=== PATIENT | female | born 1990 | race African-American/Black ===

== ENCOUNTER 2017-08-04 04:25 | Emergency (ER) | payer BC ==
[2017-08-04] MEDS ORDERED: Ketorolac Tromethamine 60 MG/2 ML VIAL ONE (04:55)
[2017-08-04] MEDS ORDERED: Dexamethasone 4 MG TAB ONE (04:55)
[2017-08-04] MEDS ORDERED: Dexamethasone 10 MG/ML VIAL ONE (04:56)
== END 2017-08-04 05:26 | disposition home or self-care (01) ==
LOC: ERS 04:25
DX: J40 Bronchitis, not specified as acute or chronic (principal); I10 Essential (primary) hypertension; F41.9 Anxiety disorder, unspecified; F17.210 Nicotine dependence, cigarettes, uncomplicated
CPT/HCPCS: 96372; 99406; J1100; J1885; J8540

== ENCOUNTER 2017-09-04 04:25 | Emergency (ER) | payer SELFPAY ==
[2017-09-04 05:04] LABS: INR-International Normal Ratio 1.1; PTT 29.7 SEC (22.9-36.1)
[2017-09-04 05:16] LABS: #Eosinphils 0.1 thou/uL (0.0-0.7); #Lymphocytes 2.6 thou/uL (1.20-3.40); #Monocytes 0.6 thou/uL (0.11-0.59); #Neutrophils 3.8 thou/uL (1.40-6.50); %Basophils 0.5 % (0.0-1.0); %Eosinophils 1.4 % (0.0-10.0); %Lymphocytes 36.3 % (21.0-51.0); %Neutrophils 53.8 % (42.0-75.0); Hemoglobin 7.2 g/dL (12.0-16.0); Hypochromia SLIGHT = 6-15 cells (100X) (0-5/hpf); MDiff Complete? YES; Mean Corpuscular HGB CONC 29.8 g/dL (32.0-36.0); Mean Corpuscular Hemoglobin 21.6 pg (27.0-31.0); Mean Corpuscular Volume 72.4 fl (81.0-99.0); Mean Platelet Volume 9.1 fL (7.4-10.4); Microcytosis MODERATE=15-30 cells (100X) (0-5/hpf); Platelet Count 381 thou/uL (130-400); RBC Distribution Width 18.6 % (11.5-14.5); Red Blood Cell (RBC) Count 3.32 mill/uL (4.20-5.40); Target Cells SLIGHT = 2-5 cells (100X) (0-1/hpf); Tear Drops SLIGHT = 2-5 cells (100X) (0-1/hpf); White Blood Cell (WBC) Count 7.1 thou/uL (4.8-10.8)
[2017-09-04 06:03] LABS: BHCG - Serum Negative (NEGATIVE); Pregs Control Background? CLEAR/WHITE (CLR/WHITE); Pregs Control Bar Appear? YES (CONTROL BAR)
[2017-09-04 06:05] LABS: Bilirubin Negative (Negative); Blood, Urine Large (Negative); Clarity CLOUDY (Clear); Glucose, Urine (Dipstick) Negative (Negative); Leukocyte Small (Negative); Nitrite Negative (Negative); Protein, Urine (Dipstick) 100 mg/dL (Neg-Trace); Specific Gravity, Urine 1.012 (1.002-1.036); Urobilinogen 0.2 mg/dL (0.2-1.0)
[2017-09-04 06:08] LABS: Bacteria/HPF None Seen HPF (None Seen); Hyaline Casts/LPF 0-3 HYALINE CAST LPF (0-3 Hyaline); Pregnancy Test - Urine (BHCG) Negative (Negative); Pregu Control Bar Appear? YES (CONTROL BAR); RBC/HPF GREATER THAN 50-TNTC HPF (0-3); Specific Gravity 1.012 (1.002-1.036); Squamous Epithelial 0-3 HPF (0-3)
[2017-09-04 06:09] LABS: Pregu Control Background? CLEAR/WHITE (CLR/WHITE)
--- NOTE | 2017-09-04 08:12 | ULT ---
PRELIMINARY REPORT/[facility]/EMERGENCY AFTER HOURS PROCEDURE: EXAM: US Pelvis Complete CLINICAL HISTORY: 27 years old, female; Signs and symptoms; Menstruation abnormalities; Excessive menstruation; With ir regular cycle; Patient HX: Vaginal bleeding with clots for 2 months TECHNIQUE: Real-time pelvic ultrasound (complete) with image documentation. COMPARISON: No relevant prior studies available. FINDINGS: The uterus measures 9.4 cm in length. There are 2 hypoechoic areas in the myometrium, adjacent to the endometrial region. These are suspici ous for possible submucosal fibroids. These measure 22 x 14 x 15 mm, and 12 x 6 x 10 mm. There is no intrauterine fluid. Endometrial thickness measures up to 10-11 mm, and is somewhat inhomogeneous. There is no free pelvic fluid. The right ovary appears unremarkable. The left ovary appears unremarkable. Blood flow detected in each ovary. The urinary bladder was not completely evaluated/imaged at this time. IMPRESSION: Possible uterine fibroids, see above details. Otherwise, essentially unremarkable sonographic appearance of the uterus and ovaries. Other details discussed above. EXAM: US Pelvis, Transvaginal CLINICAL HISTORY: 27 years old, female; Signs and symptoms; Menstruation abnormalities; Excessive menstruation; With ir regular cycle; Patient HX: Vaginal bleeding with clots for 2 months TECHNIQUE: Real-time transvaginal pelvic ultrasound (complete) with image documentation. Transvaginal imaging wa s used for better evaluation of the endometrium and adnexa. COMPARISON: No relevant prior studies available. FINDINGS: The uterus measures 9.4 cm in length. There are 2 hypoechoic areas in the myometrium, adjacent to the endometrial region. These are suspici ous for possible submucosal fibroids. These measure 22 x 14 x 15 mm, and 12 x 6 x 10 mm. There is no intrauterine fluid. Endometrial thickness measures up to 10-11 mm, and is somewhat inhomogeneous. There is no free pelvic fluid. The right ovary appears unremarkable. The left ovary appears unremarkable. Blood flow detected in each ovary. The urinary bladder was not completely evaluated/imaged at this time. Endovaginal scanning provided better visualization/evaluation of the endometrium, myometrial, and ova leticia/adnexal regions as discussed above. IMPRESSION: Possible uterine fibroids, see above details. Otherwise, essentially unremarkable sonographic appearance of the uterus and ovaries. Other details discussed above. Thank you for allowing us to participate in the care of your patient. Dictated and Authenticated by: Preston Melo MD 09/04/2017 7:25 AM Central Time ([place] & [place]) FINAL REPORT TRANSABDOMINAL AND TRANSVAGINAL PELVIC AND VASCULAR DUPLEX INCLUDING COLOR SPECTRAL DOPPLER IMAGING O F THE PELVIS: Emergency after-hours examination at 5:57 a.m. on 09/04/2017. Two small hypoechoic foci within the uterus, the largest measuring approximately 1.4 x 1.5 x 2.2 cm, evidence for small submucosal fibroids. Endometrial thickness at 1.1 cm with a somewhat heterogeneou s appearance. Right and left ovaries are unremarkable. Vascular flow is documented in both ovaries. No evidence for ovarian torsion. Code QA/Agree with [facility]. POS: [facility]
[2017-09-04] MEDS ORDERED: Ondansetron HCl/PF 4 MG/2 ML Vial ONE (08:49)
[2017-09-04] MEDS ORDERED: Megestrol Acetate 40 MG TAB PO SCH (09:00)
--- NOTE | 2017-09-04 22:10 | CON ---
DATE OF CONSULTATION: 09/04/2017 CHIEF COMPLAINT: Menorrhagia and anemia. HISTORY OF PRESENT ILLNESS: At the time of presentation, Ms. Collins is a 27-year-old nulliparous f emale with a history of irregular menses who has been bleeding since the end of June. The patient presented to the emergency department with complaints of lightheadedness and dizziness in the wee ho urs of the morning. She states that for the first 2-3 weeks of bleeding, it was about the amount of a normal period but thereafter, it has been heavy with passage of grape sized clots. The patient has not been on control within the last year, states that is has been approximately 10 years and s he was not on any control. She denies any fever or chills. She denies any cardiovascular, res piratory or GI complaints. She does report a mild headache, but denies any further lightheadedness o r dizziness. The patient has not been sexually active for the past several months. She denies any h istory of abnormal Pap smears. She was last seen by a iron melter 4 years ago. PAST MEDICAL HISTORY: Hypertension, anemia. PAST SURGICAL HISTORY: Negative. MEDICATIONS: The patient was prescribed lisinopril which she self-discontinued approximately 1 month ago secondary to lightheadedness and vomiting. ALLERGIES: No known drug allergies. SOCIAL HISTORY: The patient admits to tobacco use and occasional alcohol use, but denies any illicit drug use. PHYSICAL EXAMINATION: VITAL SIGNS: Within normal limits. The patient is afebrile, negative orthostatics. HEENT: Normocephalic, atraumatic. LUNGS: Clear to auscultation. CARDIOVASCULAR: Regular rate and rhythm. ABDOMEN: Soft, nontender, nondistended, no rebound, no guarding, no palpable masses. LABORATORY DATA: Hemoglobin is 7. TSH is within normal limits. test is negative. Ultras ound is notable for an endometrial thickness of 10-11 mm and a normal sized uterus of 9.4 cm in lengt h. There were 2 small fibroids adjacent to the endometrial cavity measuring 22 mm and 12 mm respecti vely. There is no pelvic free fluid. Both ovaries are unremarkable. ASSESSMENT AND PLAN: A 27-year-old nulliparous female with menometrorrhagia. After receiving fluids, the patient has nega tive orthostatics and is no longer having lightheadedness or dizziness. Her hemoglobin is 7. I disc ussed the plan of care with options including admission for observation and hormonal treatment of the bleeding versus outpatient and the patient is amenable to outpatient therapy. She will be started o n Megace 40 mg p.o. daily and instructed to take that for 10 days. She was instructed that when she discontinues the Megace, she will have a withdrawal bleed that will hopefully be mold changer. The lianne jara was instructed to follow up with [facility] within the next 2 weeks and that she would need an endometrial biopsy as well as a current Pap smear. Additionally, the patient was couns eled to stop smoking as that will allow us broader options for her treatment. Patient had the opport unity to ask and have her questions answered. Plan of care was also discussed with the ER physician, Dr. Dudley. The patient was instructed that should she have recurrence of heavy vaginal bleeding, s he should return to the emergency department.
== END 2017-09-04 10:03 | disposition home or self-care (01) ==
LOC: ERS 04:25
DX: N93.9 Abnormal uterine and vaginal bleeding, unspecified (principal); D64.9 Anemia, unspecified; F17.210 Nicotine dependence, cigarettes, uncomplicated; I10 Essential (primary) hypertension
CPT/HCPCS: 76856; 81003; 81015; 81025; 84443; 84703; 85025; 85610; 85730; 86850; 86900; 86901; 96361; 96374; J2405; S0179

== ENCOUNTER 2018-06-25 01:01 | Observation (INO) | payer SELFPAY ==
[2018-06-25 01:41] LABS: #Eosinphils 0.1 thou/uL (0.0-0.7); #Lymphocytes 2.2 thou/uL (1.20-3.40); #Monocytes 0.6 thou/uL (0.11-0.59); #Neutrophils 5.9 thou/uL (1.40-6.50); %Basophils 0.5 % (0.0-1.0); %Eosinophils 1.2 % (0.0-10.0); %Lymphocytes 24.7 % (21.0-51.0); %Monocytes 7.2 % (0.0-10.0); %Neutrophils 66.4 % (42.0-75.0); Hemoglobin 6.8 g/dL (12.0-16.0); Mean Corpuscular HGB CONC 27.9 g/dL (32.0-36.0); Mean Corpuscular Hemoglobin 16.8 pg (27.0-31.0); Mean Corpuscular Volume 60.1 fL (78.0-98.0); Mean Platelet Volume 6.2 fL (7.4-10.4); Platelet Count 312 thou/uL (130-400); RBC Distribution Width 21.1 % (11.5-14.5); Red Blood Cell (RBC) Count 4.03 mill/uL (4.20-5.40); Reflex for Review?? NO; White Blood Cell (WBC) Count 8.8 thou/uL (4.8-10.8)
[2018-06-25 02:01] LABS: ALT (SGPT) 9 U/L (8-55); AST (SGOT) 12 U/L (5-34); Albumin 4.1 g/dL (3.5-5.0); Alkaline Phosphatase 102 U/L (40-150); Anion Gap 12 mmol/L (10-20); BUN (Urea Nitrogen) 6 mg/dL (7.0-18.7); Bilirubin, Total 0.5 mg/dL (0.2-1.2); Calc. Creatinine Clearance 0 mL/min (70-130); Calcium 8.7 mg/dL (7.8-10.44); Carbon Dioxide 24 mmol/L (22-29); Chloride 110 mmol/L (98-107); Estimated GFR-MDRD Greater than 90; Globulin 3.3 g/dL (2.4-3.5); Glucose 107 mg/dL (70-105); Potassium 3.5 mmol/L (3.5-5.1); Protein, Total 7.4 g/dL (6.0-8.3); Sodium 142 mmol/L (136-145)
[2018-06-25 02:04] LABS: CKMB 0.2 ng/mL (0-6.6); Troponin I Less than 0.010 ng/mL (< 0.028)
[2018-06-25 02:17] LABS: Bilirubin Negative (Negative); Blood, Urine Negative (Negative); Glucose, Urine (Dipstick) Negative (Negative); Leukocyte Negative (Negative); Nitrite Negative (Negative); Pregnancy Test - Urine (BHCG) Negative (Negative); Pregu Control Background? CLEAR/WHITE (CLR/WHITE); Pregu Control Bar Appear? YES (CONTROL BAR); Protein, Urine (Dipstick) Negative (Neg-Trace); Specific Gravity 1.002 (1.002-1.036); Urobilinogen 0.2 mg/dL (0.2-1.0); pH, Urine 6.5 (5.0-9.0)
[2018-06-25 02:18] LABS: Clarity Clear (Clear); Specific Gravity, Urine 1.002 (1.002-1.036)
[2018-06-25 03:49] VITALS: BMI 44.6
[2018-06-25 07:39] LABS: Hemoglobin 7.2 g/dL (12.0-16.0)
[2018-06-25 08:12] VITALS: TEMP 98.2
--- NOTE | 2018-06-25 08:14 | RAD ---
PORTABLE AP CHEST X-RAY: 06/25/2018 HISTORY: Chest pain for one hour. Fever. Cough. COMPARISON: 02/10/2017 FINDINGS: The cardiac silhouette is magnified by projection but stable in size. The pulmonary vasculature is w ithin normal limits. The lungs are clear. There has been no interval change when compared to the pr ior exam. IMPRESSION: No acute cardiopulmonary process. POS: [facility]
[2018-06-25 11:53] VITALS: BP 136/67
--- NOTE | 2018-06-25 14:10 | HP ---
REASON FOR ADMISSION/CHIEF COMPLAINT: Cough, chest pain and fever. HISTORY OF PRESENT ILLNESS: Ms. Collins is a 28-year-old female with past medical history of iron deficiency anemia, menorrhagia and cough with sharp pain in the chest and claimed she had fever at home. Cough is dry and felt some short of breath. The pain in the left side of the ch est, sharp in nature, not any diaphoresis, no dizziness, no nausea, vomiting. Chest pain was worse w ith coughing episodes. The patient came to the emergency room where she was evaluated and found to b e anemic, hemoglobin of 6.8. She did not have any fever. She was treated with blood transfusion and serial cardiac enzymes. EKG and cardiac enzymes initially were normal. Chest x-ray was also normal . PAST MEDICAL HISTORY: History of menorrhagia, history of fibroid uterus. History of iron-deficiency anemia. PAST SURGICAL HISTORY: Nothing contributory. CURRENT MEDICATIONS: Not taking iron supplements. ALLERGIES: No known drug allergies. FAMILY HISTORY: Nothing contributory. SOCIAL HISTORY: Patient lives with family. Smokes half a pack for a week. REVIEW OF SYSTEMS: Unremarkable except for cough and sharp pain in the chest. PHYSICAL EXAMINATION: GENERAL: The patient is alert, awake, oriented x3. VITAL SIGNS: Temperature 98, pulse 111, respirations 20, blood pressure 120/60. HEENT: Head is normocephalic, atraumatic. Pupils equal and reactive to light. Nasopharynx is pale and dry. Hard and soft palate, no lesions seen. NECK: Supple. No JVD. LUNGS: Bilateral air entry present, no rales. CARDIAC: S1, S2 regular. ABDOMEN: Soft, no distention, no tenderness. Normal bowel sounds. RECTAL: Deferred. NEUROLOGIC: No focal deficit. LABORATORY AND X-RAY FINDINGS: CBC shows WBC 8, hemoglobin 6.8, hematocrit 24, platelets 312, MCV 60 . Metabolic panel: Sodium 140, potassium 3.5, chloride 110, CO2 24, BUN 6, creatinine 0.8, glucose 107. Urinalysis negative. Chest x-ray negative. EKG showed normal sinus rhythm, no acute ST-T changes seen. ASSESSMENT: 1. Severe iron-deficiency anemia. 2. Atypical chest pain. 3. Upper respiratory tract infection. 4. History of menorrhagia and fibroid uterus. PLAN: 1. Vital signs q.4 hours. 2. Activities, as tolerated. 3. Allergies; no known drug allergies. 4. Hep-Lock. 5. Troponin I q.8 hours x2. 6. Diet: Regular diet. 7. Feosol 1 b.i.d. 8. The patient probably will discharged home soon and she should be referred to a metal riveter regar ding her menorrhagia and fibroid uterus. She can be followed up again in the office.
[2018-06-25 14:29] LABS: #Eosinphils 0.1 thou/uL (0.0-0.7); #Lymphocytes 2.3 thou/uL (1.20-3.40); #Monocytes 0.5 thou/uL (0.11-0.59); #Neutrophils 4.5 thou/uL (1.40-6.50); %Basophils 0.4 % (0.0-1.0); %Eosinophils 1.4 % (0.0-10.0); %Lymphocytes 31.2 % (21.0-51.0); %Monocytes 6.7 % (0.0-10.0); %Neutrophils 60.4 % (42.0-75.0); Hemoglobin 7.9 g/dL (12.0-16.0); Mean Corpuscular Hemoglobin 17.7 pg (27.0-31.0); Mean Corpuscular Volume 63.2 fL (78.0-98.0); Mean Platelet Volume 5.6 fL (7.4-10.4); Platelet Count 330 thou/uL (130-400); RBC Distribution Width 24.3 % (11.5-14.5); Red Blood Cell (RBC) Count 4.47 mill/uL (4.20-5.40); White Blood Cell (WBC) Count 7.4 thou/uL (4.8-10.8)
[2018-06-25 14:42] LABS: Anisocytosis MODERATE=16-30 cells (100X) (0-5/hpf); Elliptocytes SLIGHT = 2-5 cells (100X) (0-1/hpf); Hypochromia MODERATE=16-30 cells (100X) (0-5/hpf); MDiff Complete? YES; Microcytosis SLIGHT = 6-15 cells (100X) (0-5/hpf); PLT Morphology Comment Appears Adequate; Poikilocytosis SLIGHT = 6-15 cells (100X) (0-5/hpf); Polychromasia MODERATE = 3-4 cells (100X) (0-2/hpf); Reflex for Review?? YES; Schistocytes SLIGHT = 2-5 cells (100X) (0-1/hpf); Spherocytes SLIGHT = 1-5 cells (100X) (None Seen); Target Cells SLIGHT = 2-5 cells (100X) (0-1/hpf); Tear Drops SLIGHT = 2-5 cells (100X) (0-1/hpf)
[2018-06-25] MEDS ORDERED: Ferrous Sulfate 325 MG TAB PO SCH (17:00)
--- NOTE | 2018-06-28 14:15 | DIS ---
DATE OF ADMISSION: 06/25/2018 DATE OF DISCHARGE: 06/25/2018 ADMITTING DIAGNOSES: 1. Severe iron-deficiency anemia. 2. Atypical chest pain. 3. Respiratory tract infection. 4. Menorrhagia. FINAL DIAGNOSES: 1. Severe iron deficiency anemia, status post transfusion. 2. Atypical chest pain, resolved. 3. History of menorrhagia. BRIEF SUMMARY OF HOSPITAL COURSE: Ms. Collins is a 28-year-old female admitted wit h severe anemia. The patient came with atypical chest pain, sharp pain, chest pain with coughing. T he patient has some upper respiratory tract infection as well. Her hemoglobin was 6.8 on admission, improved to 7.9 after transfusion. The patient has history of menorrhagia, she was seen by gynecolog ist last year. The patient continued to have heavy periods. Currently, the patient hemodynamically stable so she is being discharged home. At the time of discharge, she was stable. Her vital signs were stable. Lungs were clear. Heart sounds regular. Abdomen is soft, nontender. Bowel sounds pre sent. DISCHARGE MEDICATIONS: Include Feosol 325 mg b.i.d. DISCHARGE INSTRUCTIONS: The patient will come for followup next week and we will send her to a gynec ologist for further evaluation of menorrhagia.
== END 2018-06-25 16:22 | disposition home or self-care (01) ==
LOC: ERS 01:01 → 2SW 02:56
PROVIDERS: ADMIT Internal Medicine; ATTEND Internal Medicine
DX: D50.9 Iron deficiency anemia, unspecified (principal); R07.89 Other chest pain; J06.9 Acute upper respiratory infection, unspecified; F17.210 Nicotine dependence, cigarettes, uncomplicated
CPT/HCPCS: 36415; 36430; 71045; 80053; 81003; 81025; 82553; 82728; 83540; 83550; 84484; 85025; 85060; 86850; 86900; 86901; 93005; 96360; G0378; P9016

== ENCOUNTER 2018-07-17 00:19 | Emergency (ER) | payer SELFPAY ==
[2018-07-17 01:13] LABS: Hemoglobin 8.5 g/dL (12.0-16.0); Mean Corpuscular HGB CONC 27.6 g/dL (32.0-36.0); Mean Corpuscular Hemoglobin 17.7 pg (27.0-31.0); Mean Corpuscular Volume 64.3 fL (78.0-98.0); Mean Platelet Volume 5.5 fL (7.4-10.4); Platelet Count 445 thou/uL (130-400); RBC Distribution Width 23.2 % (11.5-14.5); Red Blood Cell (RBC) Count 4.79 mill/uL (4.20-5.40); White Blood Cell (WBC) Count 8.3 thou/uL (4.8-10.8)
[2018-07-17 01:17] LABS: BHCG - Serum Negative (NEGATIVE); Pregs Control Background? CLEAR/WHITE (CLR/WHITE); Pregs Control Bar Appear? YES (CONTROL BAR)
[2018-07-17 01:33] LABS: ALT (SGPT) 12 U/L (8-55); AST (SGOT) 12 U/L (5-34); Albumin 4.3 g/dL (3.5-5.0); Alcohol 181 mg/dL (Less than 10); Alkaline Phosphatase 114 U/L (40-150); Anion Gap 10 mmol/L (10-20); BUN (Urea Nitrogen) 7 mg/dL (7.0-18.7); Bilirubin, Total 0.5 mg/dL (0.2-1.2); Calc. Creatinine Clearance 0 mL/min (70-130); Carbon Dioxide 26 mmol/L (22-29); Chloride 112 mmol/L (98-107); Estimated GFR-MDRD Greater than 90; Globulin 3.5 g/dL (2.4-3.5); Glucose 116 mg/dL (70-105); Potassium 3.7 mmol/L (3.5-5.1); Protein, Total 7.8 g/dL (6.0-8.3); Sodium 144 mmol/L (136-145)
[2018-07-17 01:34] LABS: #Basophils 0.1 thou/uL (0.0-0.2); #Eosinphils 0.1 thou/uL (0.0-0.7); #Lymphocytes 2.4 thou/uL (1.20-3.40); #Monocytes 0.5 thou/uL (0.11-0.59); #Neutrophils 5.2 thou/uL (1.40-6.50); %Basophils 0.6 % (0.0-1.0); %Eosinophils 1.8 % (0.0-10.0); %Lymphocytes 29.5 % (21.0-51.0); %Monocytes 5.4 % (0.0-10.0); %Neutrophils 62.7 % (42.0-75.0); Anisocytosis SLIGHT = 6-15 cells (100X) (0-5/hpf); Hypochromia MODERATE=16-30 cells (100X) (0-5/hpf); MDiff Complete? YES; Microcytosis SLIGHT = 6-15 cells (100X) (0-5/hpf); PLT Morphology Comment Appears Increased
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
== END 2018-07-17 03:45 | disposition home or self-care (01) ==
LOC: ERS 00:19
DX: F10.129 Alcohol abuse with intoxication, unspecified (principal); I10 Essential (primary) hypertension; D64.9 Anemia, unspecified; F17.210 Nicotine dependence, cigarettes, uncomplicated; W19.XXXA Unspecified fall, initial encounter
CPT/HCPCS: 36415; 70450; 72125; 80053; 80307; 84703; 85025; 93005

== ENCOUNTER 2019-09-23 11:05 | Emergency (ER) | payer SELFPAY ==
[2019-09-23 12:52] LABS: #Eosinphils 0.1 thou/uL (0.0-0.7); #Monocytes 0.5 thou/uL (0.11-0.59); #Neutrophils 4.2 thou/uL (1.40-6.50); %Basophils 0.6 % (0.0-1.0); %Eosinophils 1.9 % (0.0-10.0); %Lymphocytes 29.1 % (21.0-51.0); %Monocytes 7.3 % (0.0-10.0); %Neutrophils 61.2 % (42.0-75.0); Hemoglobin 6.8 g/dL (12.0-16.0); Mean Corpuscular HGB CONC 28.7 g/dL (32.0-36.0); Mean Corpuscular Hemoglobin 17.4 pg (27.0-31.0); Mean Corpuscular Volume 60.4 fL (78.0-98.0); Mean Platelet Volume 5.8 fL (7.4-10.4); Platelet Count 284 thou/uL (130-400); RBC Distribution Width 19.3 % (11.5-14.5); Red Blood Cell (RBC) Count 3.91 mill/uL (4.20-5.40); White Blood Cell (WBC) Count 6.8 thou/uL (4.8-10.8)
[2019-09-23 12:57] LABS: BHCG - Serum Negative (NEGATIVE); Pregs Control Background? CLEAR/WHITE (CLR/WHITE); Pregs Control Bar Appear? YES (CONTROL BAR)
[2019-09-23 13:11] LABS: ALT (SGPT) 10 U/L (8-55); AST (SGOT) 11 U/L (5-34); Albumin 3.9 g/dL (3.5-5.0); Alkaline Phosphatase 97 U/L (40-110); Anion Gap 10 mmol/L (10-20); BUN (Urea Nitrogen) 8 mg/dL (7.0-18.7); Bilirubin, Total 0.6 mg/dL (0.2-1.2); Calc. Creatinine Clearance 0 mL/min (70-130); Calcium 8.5 mg/dL (7.8-10.44); Carbon Dioxide 25 mmol/L (22-29); Chloride 108 mmol/L (98-107); Estimated GFR-MDRD Greater than 90; Globulin 3.4 g/dL (2.4-3.5); Glucose 97 mg/dL (70-105); Potassium 3.9 mmol/L (3.5-5.1); Protein, Total 7.3 g/dL (6.0-8.3); Sodium 139 mmol/L (136-145)
[2019-09-23 13:18] LABS: Anisocytosis SLIGHT = 6-15 cells (100X) (0-5/hpf); Hypochromia MODERATE=16-30 cells (100X) (0-5/hpf); MDiff Complete? YES; Microcytosis MODERATE=15-30 cells (100X) (0-5/hpf); Ovalocytes SLIGHT = 2-5 cells (100X) (0-1/hpf); Platelet Morphology Comment Appears Adequate; Polychromasia SLIGHT = 2-3 cells (100X) (0-2/hpf); Reflex for Review?? NO; Schistocytes SLIGHT = 2-5 cells (100X) (0-1/hpf); Stomatocytes SLIGHT = 2-5 cells (100X) (0-1/hpf); Tear Drops SLIGHT = 2-5 cells (100X) (0-1/hpf)
== END 2019-09-23 19:50 | disposition home or self-care (01) ==
LOC: ERS 11:05
DX: D64.9 Anemia, unspecified (principal); N93.9 Abnormal uterine and vaginal bleeding, unspecified; I10 Essential (primary) hypertension; F17.210 Nicotine dependence, cigarettes, uncomplicated
CPT/HCPCS: 36415; 36430; 80053; 84703; 85025; 86850; 86900; 86901; 93005; P9016

== ENCOUNTER 2020-10-17 10:55 | Emergency (ER) | payer SELFPAY ==
[2020-10-17 11:29] LABS: #Basophils 0.1 thou/uL (0.0-0.2); #Eosinphils 0.2 thou/uL (0.0-0.7); #Lymphocytes 2.2 thou/uL (1.20-3.40); #Monocytes 0.5 thou/uL (0.11-0.59); #Neutrophils 4.5 thou/uL (1.40-6.50); %Basophils 0.8 % (0.0-1.0); %Eosinophils 3.3 % (0.0-10.0); %Lymphocytes 29.2 % (21.0-51.0); %Monocytes 6.6 % (0.0-10.0); %Neutrophils 60.1 % (42.0-75.0); Hemoglobin 6.4 g/dL (12.0-16.0); Mean Corpuscular HGB CONC 28.3 g/dL (32.0-36.0); Mean Corpuscular Hemoglobin 17.4 pg (27.0-31.0); Mean Corpuscular Volume 61.6 fL (78.0-98.0); Mean Platelet Volume 6.3 fL (7.4-10.4); Platelet Count 334 thou/uL (130-400); RBC Distribution Width 20.6 % (11.5-14.5); Red Blood Cell (RBC) Count 3.64 mill/uL (4.20-5.40); White Blood Cell (WBC) Count 7.6 thou/uL (4.8-10.8)
[2020-10-17 11:38] LABS: BHCG - Serum Negative (NEGATIVE); Pregs Control Background? CLEAR/WHITE (CLR/WHITE); Pregs Control Bar Appear? YES (CONTROL BAR)
[2020-10-17 11:54] LABS: ALT (SGPT) 9 U/L (8-55); AST (SGOT) 9 U/L (5-34); Albumin 3.8 g/dL (3.5-5.0); Alkaline Phosphatase 90 U/L (40-110); Anion Gap 11 mmol/L (10-20); BUN (Urea Nitrogen) 6 mg/dL (7.0-18.7); Bilirubin, Total 0.4 mg/dL (0.2-1.2); Calc. Creatinine Clearance 0 mL/min (70-130); Calcium 8.2 mg/dL (7.8-10.44); Carbon Dioxide 24 mmol/L (22-29); Chloride 108 mmol/L (98-107); Globulin 3.2 g/dL (2.4-3.5); Glucose 102 mg/dL (70-105); Potassium 3.8 mmol/L (3.5-5.1); Sodium 139 mmol/L (136-145)
[2020-10-17 11:55] LABS: Hypochromia MARKED = >30 cells (100X) (0-5/hpf); MDiff Complete? YES; Microcytosis MARKED = >30 cells (100X) (0-5/hpf); Ovalocytes SLIGHT = 2-5 cells (100X) (0-1/hpf); Platelet Morphology Comment Appears Adequate; Polychromasia SLIGHT = 2-3 cells (100X) (0-2/hpf); Reflex for Review?? NO
[2020-10-17 12:53] LABS: Bacteria/HPF None Seen HPF (None Seen); Bilirubin Negative (Negative); Blood, Urine 3+ (Negative); Clarity Turbid (Clear); Glucose, Urine (Dipstick) Normal (Negative); Ketone, Urine Negative (Negative); Leukocyte 75 Leu/uL (Negative); Nitrite Negative (Negative); Protein, Urine (Dipstick) 20 mg/dL (Neg-Trace); RBC/HPF Greater than 50 HPF (0-3); Specific Gravity, Urine 1.016 (1.002-1.036); Squamous Epithelial 0-3 HPF (0-3); Urobilinogen Normal mg/dL (Less than 2); WBC/HPF 21-50 HPF (0-3); pH, Urine 7.5 (5.0-9.0)
--- NOTE | 2020-10-17 13:39 | ULT ---
TRANSABDOMINAL AND ENDOVAGINAL PELVIC ULTRASOUND: HISTORY: Pain. Bleeding. COMPARISON: 04/10/2011. TECHNIQUE: Transabdominal and endovaginal imaging of the pelvis is performed. FINDINGS: Limited evaluation of the uterus. No obvious myometrial masses. Heterogeneity of the myometrium with possible shadowing is noted. Nabothian cyst is noted. Uterus measures 4.2 x 3.7 x 8.9 cm. Homogeneous echotexture of the endometrium, measuring 0.7 cm. Free fluid in the cul-de-sac. Neither ovary is appreciated. IMPRESSION: 1. Nabothian cyst. 2. Heterogeneous uterine myometrial echotexture without discrete mass. Better evaluation of the myome trium with pelvic MRI is recommended. 2. Nonvisualization of either ovary. Transcribed Date/Time: 10/17/2020 1:59 PM
== END 2020-10-17 18:03 | disposition home or self-care (01) ==
LOC: ERS 10:55
DX: N93.9 Abnormal uterine and vaginal bleeding, unspecified (principal); D64.9 Anemia, unspecified; F17.210 Nicotine dependence, cigarettes, uncomplicated; I10 Essential (primary) hypertension
CPT/HCPCS: 36415; 36430; 76856; 80053; 81003; 81015; 84703; 85025; 86850; 86900; 86901; 99406; P9016

== ENCOUNTER 2021-11-07 11:02 | Emergency (ER) | payer SELFPAY ==
[2021-11-07] MEDS ORDERED: Ibuprofen 800 MG TAB ONE (11:59)
== END 2021-11-07 12:40 | disposition home or self-care (01) ==
LOC: ERS 11:02
DX: J03.90 Acute tonsillitis, unspecified (principal); I10 Essential (primary) hypertension; F17.210 Nicotine dependence, cigarettes, uncomplicated
CPT/HCPCS: 87081; 87430; 99283

== ENCOUNTER 2022-02-26 21:48 | Emergency (ER) | payer SELFPAY | END 2022-02-27 00:44 | disposition home or self-care (01) | LOC: ERS 21:48 | DX: J06.9 Acute upper respiratory infection, unspecified (principal); I10 Essential (primary) hypertension; D64.9 Anemia, unspecified; F17.210 Nicotine dependence, cigarettes, uncomplicated | CPT/HCPCS: 99283 ==

== ENCOUNTER 2022-04-07 15:25 | Emergency (ER) | payer SELFPAY ==
[2022-04-07] MEDS ORDERED: Boostrix 0.5 ML (Tdap) VIAL ONE (17:16)
[2022-04-07] MEDS ORDERED: Lidocaine 1% PF 5 ML VIAL ONE (17:56)
[2022-04-07] MEDS ORDERED: Bacitracin 1 PK ONE (18:23)
== END 2022-04-07 18:50 | disposition home or self-care (01) ==
LOC: ERS 15:25
DX: S51.812A Laceration without foreign body of left forearm, initial encounter (principal); S50.02XA Contusion of left elbow, initial encounter; D64.9 Anemia, unspecified; I10 Essential (primary) hypertension; F17.210 Nicotine dependence, cigarettes, uncomplicated; W25.XXXA Contact with sharp glass, initial encounter
CPT/HCPCS: 90715

== ENCOUNTER 2022-08-28 23:22 | Emergency (ER) | payer SELFPAY ==
[2022-08-29] MEDS ORDERED: Dexamethasone 10 MG/ML VIAL ONE (00:09)
[2022-08-29] MEDS ORDERED: Bicillin LA 1.2 MILLION UNITS/2 ML SYRINGE ONE (00:17)
== END 2022-08-29 00:43 | disposition home or self-care (01) ==
LOC: ERS 23:22
DX: J02.0 Streptococcal pharyngitis (principal); I10 Essential (primary) hypertension; F17.210 Nicotine dependence, cigarettes, uncomplicated
CPT/HCPCS: 96372; 99283; J0561; J1100

== ENCOUNTER 2022-09-14 02:10 | Emergency (ER) | payer SELFPAY | END 2022-09-14 04:15 | disposition home or self-care (01) | LOC: ERS 02:10 | DX: R07.89 Other chest pain (principal); I10 Essential (primary) hypertension | CPT/HCPCS: 71045; 93005 ==

== ENCOUNTER 2023-03-10 03:43 | Emergency (ER) | payer SELFPAY ==
[2023-03-10] MEDS ORDERED: Albuterol 200 PUFF INH ONE ×2 (04:16→04:18)
[2023-03-10] MEDS ORDERED: Dexamethasone 4 MG TAB ONE (04:16)
== END 2023-03-10 04:59 | disposition home or self-care (01) ==
LOC: ERS 03:43
DX: J20.9 Acute bronchitis, unspecified (principal); I10 Essential (primary) hypertension
CPT/HCPCS: 71045; J8540

== ENCOUNTER 2023-06-29 20:48 | Emergency (ER) | payer SELFPAY ==
[2023-06-29] MEDS ORDERED: Morphine 4 MG/ML VIAL ONE (21:37)
[2023-06-29] MEDS ORDERED: Ondansetron PF 4 MG/2 ML Vial ONE (21:37)
[2023-06-29 21:59] LABS: #Eosinphils 0.1 thou/uL (0.0-0.7); #Monocytes 0.6 thou/uL (0.11-0.59); #Neutrophils 6.7 thou/uL (1.40-6.50); %Basophils 0.2 % (0.0-1.0); %Eosinophils 0.7 % (0.0-10.0); %Lymphocytes 23.8 % (21.0-51.0); %Neutrophils 69.1 % (42.0-75.0); Hematocrit 40.5 % (36.0-47.0); Hemoglobin 11.8 g/dL (12.0-16.0); Mean Corpuscular HGB CONC 29.1 g/dL (32.0-36.0); Mean Corpuscular Hemoglobin 22.4 pg (27.0-31.0); Mean Platelet Volume 11.4 fL (7.4-10.4); Platelet Count 274 10x3/uL (130-400); Red Blood Cell (RBC) Count 5.26 mill/uL (4.20-5.40); White Blood Cell (WBC) Count 9.7 10x3/uL (4.8-10.8)
[2023-06-29 22:11] LABS: Amphetamine Not Detected (NotDetected); Barbiturates Screen Not Detected (NotDetected); Benzodiazepine Screen Not Detected (NotDetected); Cocaine Metabolite Screen Not Detected (NotDetected); Methadone Not Detected (NotDetected); Methamphetamine Not Detected (NotDetected); Opiate Screen Not Detected (NotDetected); Oxycodone Screen Not Detected (NotDetected); Phencyclidine (PCP) Not Detected (NotDetected); THC/Cannabinoid Screen Not Detected (NotDetected); Tricyclic Screen Not Detected (NotDetected)
[2023-06-29 22:16] LABS: BHCG - Serum Negative (NEGATIVE); Pregs Control Background? CLEAR/WHITE (CLR/WHITE); Pregs Control Bar Appear? YES (CONTROL BAR)
[2023-06-29 22:25] LABS: ALT (SGPT) 17 U/L (8-55); AST (SGOT) 15 U/L (5-34); Acetaminophen Less than 10 mcg/mL (10.0-30.0); Albumin 4.6 g/dL (3.5-5.0); Alcohol Less than 10.0 mg/dL (Less than 10); Alkaline Phosphatase 104 U/L (40-110); Anion Gap 15 mmol/L (10-20); BUN (Urea Nitrogen) 9 mg/dL (7.0-18.7); Bilirubin, Total 0.3 mg/dL (0.2-1.2); Calc. Creatinine Clearance 0 mL/min (70-130); Calcium 9.7 mg/dL (7.8-10.44); Carbon Dioxide 22 mmol/L (22-29); Chloride 105 mmol/L (98-107); Estimated GFR 86; Globulin 3.2 g/dL (2.4-3.5); Glucose 108 mg/dL (70-105); Lipase 15 U/L (8-78); Potassium 3.6 mmol/L (3.5-5.1); Protein, Total 7.8 g/dL (6.0-8.3); Salicylate Less than 8.0 mg/dL (15.0-30.0); Sodium 138 mmol/L (136-145)
[2023-06-29 22:27] LABS: Troponin I Less than 0.010 ng/mL (< 0.028)
== END 2023-06-29 23:20 | disposition home or self-care (01) ==
LOC: ERS 20:48
DX: R07.89 Other chest pain (principal); I10 Essential (primary) hypertension; F17.290 Nicotine dependence, other tobacco product, uncomplicated
CPT/HCPCS: 36415; 71045; 80053; 80306; 80307; 83690; 84484; 84703; 85025; 85379; 93005; J2270; J2405

== ENCOUNTER 2024-01-30 22:28 | Emergency (ER) | payer SELFPAY ==
[2024-01-31] MEDS ORDERED: Acetaminophen 500 MG TAB ONE (01:31)
== END 2024-01-31 01:40 | disposition home or self-care (01) ==
LOC: ERS 22:28
DX: R07.89 Other chest pain (principal); I10 Essential (primary) hypertension
CPT/HCPCS: 71045; 93005